=== PATIENT | female | born 1980 | race Caucasian/White ===

== ENCOUNTER 2017-08-05 07:51 | Day surgery (SDC) | payer OTHER ==
[~2017-08-05] VITALS: Ht 162.6 cm; Wt 59.2 kg
[2017-08-05] VITALS (11 sets, daily range): BP systolic 93–113; BP diastolic 54–74; PULSE 60–95; TEMP 97.7–98.2
[~2017-08-05 07:51] MED LIST: MOTRIN 800800 MG/TAB PO; PERCOCET 325 MG1 TA2 PO
[2017-08-05] MEDS ORDERED: ADDERALL10 MG PO ×2 (08:49→08:50)
[2017-08-05] MEDS ORDERED: ADDERALL15 MG PO (08:50)
[2017-08-05] MEDS ORDERED: EMOQUETTE 0.151 TAB PO (08:51)
[2017-08-05] MEDS ORDERED: LOPRESSOR 225 MG/TAB PO (08:52)
[2017-08-05] MEDS ORDERED: TYLENOL PM EXTR1 TA1 PO (08:52)
[2017-08-05] MEDS ORDERED: ESTRACE 1MG1 MG/TAB PO (10:18)
[2017-08-06 09:00] VITALS: BP 107/60; PULSE 80; TEMP 98.6
== END 2017-08-06 12:35 | disposition home or self-care (01) ==
LOC: SDCO 07:51 → OB 13:45 → SDCO 08-06 12:35
DX: N80.9 Endometriosis, unspecified (principal); R10.2 Pelvic and perineal pain; N73.6 Female pelvic peritoneal adhesions (postinfective); G47.33 Obstructive sleep apnea (adult) (pediatric); K58.9 Irritable bowel syndrome, unspecified; F07.81 Postconcussional syndrome; Z90.49 Acquired absence of other specified parts of digestive tract; E78.00 Pure hypercholesterolemia, unspecified; Z87.891 Personal history of nicotine dependence; Z82.61 Family history of arthritis; Z82.3 Family history of stroke; Z81.8 Family history of other mental and behavioral disorders; Z82.62 Family history of osteoporosis; Z83.49 Family history of other endocrine, nutritional and metabolic diseases; Z84.2 Family history of other diseases of the genitourinary system; Z80.3 Family history of malignant neoplasm of breast; Z80.1 Family history of malignant neoplasm of trachea, bronchus and lung; Z82.49 Family history of ischemic heart disease and other diseases of the circulatory system
CPT/HCPCS: OP; A4315; J0690; J1100; J1170; J1885; J2250; J2270; J2405; J2704; J2710; J3010; J7120

== ENCOUNTER → 2020-10-22 | Outpatient (CLI) | payer OTHER ==
[~2020-10-22] MED LIST changes: +ADDERALL10 MG PO; +ADDERALL15 MG PO; +EMOQUETTE 0.151 TAB PO; +ESTRACE 1MG1 MG/TAB PO; +LOPRESSOR 225 MG/TAB PO; +TYLENOL PM EXTR1 TA1 PO
== END ==
LOC: COL.PUL 13:00
DX: R06.02 Shortness of breath (principal); Z87.891 Personal history of nicotine dependence
CPT/HCPCS: J7674